=== PATIENT | female | born 1950 | race Caucasian/White ===

== ENCOUNTER 2019-06-20 14:03 | Inpatient (IN) ==
[2019-06-20] MEDS ORDERED: SODIUM CHLORIDE 0.9% 1,000 ML IV STA (14:27)
[2019-06-20 14:52] LABS: INR 0.9; PT Patient Result 10.3 SECS (9.6-12.2)
[2019-06-20 15:07] LABS: Basophils % 0.5 % (0.0-0.8); Eosinophils # 0.2 10*3/uL (0.0-0.87); Eosinophils % 2.3 % (0.00-10.9); Hematocrit 28.2 VOL% (35.7-47.0); Hemoglobin 8.6 GM/DL (12.0-16.0); Immature Granulocytes % 0.5 %; Immature Granulocytes Absolute 0.04 #; Lymphocytes # 1.6 10*3/uL (1.4-4.0); Lymphocytes % 19.1 % (21.3-54.2); Mean Corpuscular HGB Conc 30.5 GM/DL (32-36); Mean Corpuscular Volume 86.8 FL (87-102); Mean Platelet Volume 9.3 FL (9.6-12.0); Neutrophils % 70.6 % (38.7-73.9); Platelet Count 215 T/CUMM (130-400); Red Blood Count 3.25 MC/CUMM (3.8-5.5); Red Cell Distribution Width 16.6 % (9.3-17.3); White Blood Count 8.2 T/CUMM (4-12)
[2019-06-20 15:14] LABS: Alanine Aminotransferase 39 U/L (13-56); Albumin 3.4 G/DL (3.4-5.0); Alkaline Phosphatase 103 U/L (45-117); Aspartate Amino Transferase 30 U/L (0-37); Bilirubin,Total < 0.39 MG/DL (0.2-1.0); Blood Urea Nitrogen 14 MG/DL (7-18); Calcium 8.7 MG/DL (8.5-10.1); Estimated Glom Filtration Rate 67 ML/MIN; Glucose 125 MG/DL (74-106); Osmolality,Calculated 282.3 MOS/KG (273-304); Total Protein 6.9 G/DL (6.4-8.3)
[2019-06-20 15:24] LABS: Apearance,Urine CLOUDY (Clear); Bilirubin,Urine Negative (Negative); Blood, Urine Negative (Negative); Glucose,Urine (UA) Negative (Negative); Ketones,Urine Negative (Negative); Nitrite,Urine Negative (Negative); Protein,Urine 30 MG/DL; RBC,Urine 4 /HPF (0-4); Squamous Epithelial Cell,Urine Occasional /HPF (0-10); Urine Color Yellow (Yellow); Urine Specific Gravity 1.015 (1.001-1.035); WBC,Urine 1 /HPF (0-6)
[2019-06-20 15:25] LABS: Hyaline Casts,Urine 11 /LPF (0-3); Mucus,Urine Occasional /LPF (Occasional)
[2019-06-20 15:30] LABS: Barbiturates Screen,Urine Negative (Negative); Benzodiazepines Screen,Urine Positive (Negative); Cannabinoid Screen,Urine Negative (Negative); Opiate Screen,Urine Negative (Negative); Phencyclidine Screen,Urine Negative (Negative)
[2019-06-20] MEDS ORDERED: ONDANSETRON 4 MG/2 ML VIAL IV PRN (17:00)
[2019-06-20] MEDS ORDERED: NITROGLYCERIN SL 0.4 MG TABLET SL PRN (18:08)
[2019-06-20] MEDS ORDERED: BENZONATATE 100 MG CAPSULE PO PRN (18:08)
[2019-06-20] MEDS ORDERED: ALBUTEROL/IPRATROPIUM 3 ML NEB RESP TX PRN (18:20)
[2019-06-20] MEDS ORDERED: METOPROLOL TARTRATE 25 MG TABLET PO SCH (21:00)
[2019-06-20] MEDS: ROSUVASTATIN 20 MG TABLET PO SCH (21:47)
[2019-06-20] MEDS: PRAMIPEXOLE 1 MG TABLET PO SCH (21:47)
[2019-06-20] MEDS: QUEtiapine 100 MG TABLET PO SCH (21:48)
[2019-06-20] MEDS: VENLAFAXINE 100 MG TABLET PO SCH (21:48)
[2019-06-20] MEDS: TICAGRELOR 90 MG TABLET PO SCH (21:48)
[2019-06-20 22:21] LABS: Troponin I < 0.015 NG/ML (0.00-0.045)
[2019-06-21 02:48] LABS: Basophils % 0.5 % (0.0-0.8); Eosinophils # 0.2 10*3/uL (0.0-0.87); Eosinophils % 2.9 % (0.00-10.9); Hematocrit 25.4 VOL% (35.7-47.0); Hemoglobin 7.7 GM/DL (12.0-16.0); Immature Granulocytes % 0.3 %; Immature Granulocytes Absolute 0.02 #; Lymphocytes # 1.6 10*3/uL (1.4-4.0); Mean Corpuscular HGB Conc 30.3 GM/DL (32-36); Mean Corpuscular Volume 87.3 FL (87-102); Mean Platelet Volume 9.5 FL (9.6-12.0); Monocytes % 8.2 % (1.7-12.7); Neutrophils % 64.1 % (38.7-73.9); Platelet Count 199 T/CUMM (130-400); Red Blood Count 2.91 MC/CUMM (3.8-5.5); Red Cell Distribution Width 16.7 % (9.3-17.3); White Blood Count 6.6 T/CUMM (4-12)
[2019-06-21 03:07] LABS: Calcium 8.5 MG/DL (8.5-10.1); Osmolality,Calculated 285.1 MOS/KG (273-304)
[2019-06-21 03:11] LABS: Troponin I < 0.015 NG/ML (0.00-0.045)
[2019-06-21] MEDS ORDERED: ceFAZolin 1,000 MG VIAL IRRIG ONE (08:00)
[2019-06-21] MEDS ORDERED: diphenhydrAMINE CAP 25 MG CAPSULE PO ONE (08:00)
[2019-06-21] MEDS ORDERED: ceFAZolin 1,000 MG in SYRINGE 1 EACH IV ONE (08:00)
[2019-06-21] MEDS ORDERED: DIAZEPAM 5 MG TABLET PO ONE (08:00)
[2019-06-21] MEDS ORDERED: SODIUM CHLORIDE 0.9% 1,000 ML IV SCH (08:00)
[2019-06-21] MEDS ORDERED: MAGNESIUM SULF RIDER 2 GM in PREMIX 1 EACH IV ONE (08:04)
[2019-06-21] MEDS ORDERED: POTASSIUM CHLORIDE 20 MEQ TABLET PO ONE ×3 (08:06→15:23)
[2019-06-21] MEDS ORDERED: ceFAZolin 1,000 MG VIAL ONE ×2 (08:15→08:59)
[2019-06-21] MEDS ORDERED: TISSUE ADHESIVE 1 EACH APPLICATOR TOP ONE (08:15)
[2019-06-21] MEDS ORDERED: MIDAZOLAM 2 MG/2 ML VIAL ONE ×2 (08:59→10:28)
[2019-06-21] MEDS ORDERED: fentaNYL 100 MCG/2 ML VIAL ONE (08:59)
[2019-06-21] MEDS ORDERED: FUROSEMIDE 40 MG TABLET PO SCH (09:00)
[2019-06-21] MEDS ORDERED: PANTOPRAZOLE 40 MG TABLET PO SCH (09:00)
[2019-06-21] MEDS ORDERED: ISOSORBIDE MONONITRATE 60 MG TABLET PO SCH (09:00)
[2019-06-21] MEDS: PANTOPRAZOLE 40 MG TABLET PO SCH ×2 (09:07→21:37)
[2019-06-21] MEDS: TICAGRELOR 90 MG TABLET PO SCH ×2 (09:07→21:41)
[2019-06-21] MEDS: ASPIRIN EC 81 MG TABLET PO SCH (09:08)
[2019-06-21] MEDS: QUEtiapine 100 MG TABLET PO SCH ×2 (09:08→21:24)
[2019-06-21] MEDS: PRAMIPEXOLE 1 MG TABLET PO SCH ×2 (09:13→21:24)
[2019-06-21] MEDS: POTASSIUM CHLORIDE 20 MEQ TABLET PO SCH (12:25)
[2019-06-21] MEDS: POTASSIUM CHLORIDE RIDER 10 MEQ in PREMIX 1 EACH IV SCH ×2 (12:40→13:52)
[2019-06-21] MEDS: VENLAFAXINE 100 MG TABLET PO SCH ×2 (13:52→21:41)
[2019-06-21] MEDS: ACETAMINOPHEN 325 MG TABLET PO PRN ×2 (16:03→22:37)
[2019-06-21] MEDS: ROSUVASTATIN 20 MG TABLET PO SCH (21:23)
[2019-06-21] MEDS: POLYETHYLENE GLYCOL POWDER 17 GM PACK PO SCH (21:27)
[2019-06-22] MEDS: ACETAMINOPHEN 325 MG TABLET PO PRN ×2 (00:36→12:59)
[2019-06-22 07:02] LABS: Basophils % 0.5 % (0.0-0.8); Eosinophils # 0.2 10*3/uL (0.0-0.87); Eosinophils % 2.9 % (0.00-10.9); Hematocrit 25.7 VOL% (35.7-47.0); Hemoglobin 7.7 GM/DL (12.0-16.0); Immature Granulocytes % 0.5 %; Immature Granulocytes Absolute 0.03 #; Lymphocytes # 1.3 10*3/uL (1.4-4.0); Lymphocytes % 24.1 % (21.3-54.2); Mean Corpuscular Volume 88.9 FL (87-102); Mean Platelet Volume 9.4 FL (9.6-12.0); Monocytes % 9.2 % (1.7-12.7); Neutrophils % 62.8 % (38.7-73.9); Platelet Count 175 T/CUMM (130-400); Red Blood Count 2.89 MC/CUMM (3.8-5.5); Red Cell Distribution Width 16.5 % (9.3-17.3); White Blood Count 5.6 T/CUMM (4-12)
[2019-06-22 07:30] LABS: Calcium 8.5 MG/DL (8.5-10.1); Osmolality,Calculated 287.1 MOS/KG (273-304)
[2019-06-22] MEDS: VENLAFAXINE 100 MG TABLET PO SCH ×2 (08:55→20:57)
[2019-06-22] MEDS: TICAGRELOR 90 MG TABLET PO SCH ×2 (08:55→20:56)
[2019-06-22] MEDS: POLYETHYLENE GLYCOL POWDER 17 GM PACK PO SCH ×2 (08:55→20:57)
[2019-06-22] MEDS: PRAMIPEXOLE 1 MG TABLET PO SCH ×2 (08:55→20:56)
[2019-06-22] MEDS: PANTOPRAZOLE 40 MG TABLET PO SCH ×2 (08:56→20:57)
[2019-06-22] MEDS: QUEtiapine 100 MG TABLET PO SCH ×2 (08:56→20:57)
[2019-06-22] MEDS: POTASSIUM CHLORIDE 20 MEQ TABLET PO SCH (08:56)
[2019-06-22] MEDS: ASPIRIN EC 81 MG TABLET PO SCH (08:56)
[2019-06-22] MEDS: METOPROLOL TARTRATE 25 MG TABLET PO SCH ×2 (10:51→20:56)
[2019-06-22] MEDS: ROSUVASTATIN 20 MG TABLET PO SCH (20:56)
[2019-06-23 06:39] LABS: Basophils % 0.4 % (0.0-0.8); Eosinophils # 0.2 10*3/uL (0.0-0.87); Eosinophils % 3.2 % (0.00-10.9); Hematocrit 27.9 VOL% (35.7-47.0); Hemoglobin 8.2 GM/DL (12.0-16.0); Immature Granulocytes % 0.6 %; Immature Granulocytes Absolute 0.04 #; Lymphocytes # 1.5 10*3/uL (1.4-4.0); Lymphocytes % 22.2 % (21.3-54.2); Mean Corpuscular HGB Conc 29.4 GM/DL (32-36); Mean Corpuscular Volume 89.4 FL (87-102); Mean Platelet Volume 9.5 FL (9.6-12.0); Monocytes % 8.8 % (1.7-12.7); Neutrophils % 64.8 % (38.7-73.9); Platelet Count 189 T/CUMM (130-400); Red Blood Count 3.12 MC/CUMM (3.8-5.5); Red Cell Distribution Width 16.8 % (9.3-17.3); White Blood Count 6.9 T/CUMM (4-12)
[2019-06-23 06:42] LABS: Calcium 8.8 MG/DL (8.5-10.1); Osmolality,Calculated 281.5 MOS/KG (273-304)
[2019-06-23 07:46] VITALS: BP 130/52
[2019-06-23] MEDS: ACETAMINOPHEN 325 MG TABLET PO PRN (08:09)
[2019-06-23] MEDS: ASPIRIN EC 81 MG TABLET PO SCH (08:09)
[2019-06-23] MEDS: PRAMIPEXOLE 1 MG TABLET PO SCH (08:09)
[2019-06-23] MEDS: PANTOPRAZOLE 40 MG TABLET PO SCH (08:10)
[2019-06-23] MEDS: VENLAFAXINE 100 MG TABLET PO SCH (08:10)
[2019-06-23] MEDS: POTASSIUM CHLORIDE 20 MEQ TABLET PO SCH (08:10)
[2019-06-23] MEDS: QUEtiapine 100 MG TABLET PO SCH (08:11)
[2019-06-23] MEDS: METOPROLOL TARTRATE 25 MG TABLET PO SCH (08:11)
[2019-06-23] MEDS: TICAGRELOR 90 MG TABLET PO SCH (08:12)
[2019-06-23] MEDS: POLYETHYLENE GLYCOL POWDER 17 GM PACK PO SCH (08:14)
== END 2019-06-23 11:42 | disposition home or self-care (01) | DRG 243 ==
LOC: N.ED 14:03 → N.EDINP 14:03 → N.2W 19:55 → SUATTDRO 06-21 09:47 → N.TELEN 06-21 11:11
PROVIDERS: ADMIT Internal Medicine; ATTEND Emergency Medicine